=== PATIENT | female | born 1960 | race Caucasian/White ===

== ENCOUNTER 2020-09-24 13:31 | Emergency (ER) | payer OTHER ==
[~2020-09-24] VITALS: Ht 160 cm; Wt 88.5 kg
[2020-09-24] MEDS ORDERED: CYMBALTA30 MG (14:39)
[2020-09-24] MEDS ORDERED: PEPCID AC20 MG (14:40)
[2020-09-24] MEDS ORDERED: ATIVAN0.5 M1 (14:40)
[2020-09-24] MEDS ORDERED: NEURONTIN300 MG ×2 (14:40→14:43)
[2020-09-24] MEDS ORDERED: ZANAFLEX4 M1 (14:41)
[2020-09-24] MEDS ORDERED: SINVASTATIN (14:41)
[2020-09-24] MEDS ORDERED: PROTONIX40 MG (14:42)
[2020-09-24] MEDS ORDERED: TOPROL XL25 M1 (14:42)
[2020-09-24] MEDS ORDERED: VITAMIN D250 MCG (14:42)
[2020-09-24] MEDS ORDERED: RESTORIL30 M1 (14:42)
[2020-09-24] MEDS ORDERED: MELOXICAM15 MG (14:43)
[2020-09-24] MEDS ORDERED: MAGNESIUM500 MG (14:43)
[2020-09-24] MEDS ORDERED: CELEXA20 MG (14:43)
[2020-09-24] MEDS ORDERED: MIRALAX17 GM (14:44)
[2020-09-24] MEDS ORDERED: [UNRECOGNIZED DRUG - OTHER] (14:44)
[2020-09-24] MEDS ORDERED: GAS RELIEF80 MG (14:46)
[2020-09-24] MEDS ORDERED: COLACE CLEAR50 MG (14:46)
[2020-09-24] MEDS ORDERED: ANALPRAM HC 2.530 GM RECTAL (17:41)
== END 2020-09-24 18:44 | disposition home or self-care (01) ==
LOC: ER 13:31
DX: K64.8 Other hemorrhoids (principal)